=== PATIENT | female | born 1930 | race Caucasian/White ===

== ENCOUNTER 2016-09-08 14:25 | Emergency (ER) | payer BC ==
[2016-09-08 13:49] LABS: BASOPHILS 0.4 %; BASOPHILS ABSOLUTE 0.03 10/3/uL (0.0-0.16); EOSINOPHILS 1.5 %; HEMATOCRIT 33.4 % (36.0-48.0); HEMOGLOBIN 9.6 g/dL (12.0-16.0); IMMATURE GRANULOCYTES 0.1 %; IMMATURE GRANULOCYTES ABSOLUTE 0.01 10/3/uL (0.0-0.11); LYMPHOCYTES 32.8 %; LYMPHOCYTES ABSOLUTE 2.25 10/3/uL (0.67-4.30); MANUAL DIFF NO %; MEAN CORPUS HGB CONC 28.7 g/dL (32.0-36.0); MEAN CORPUSCULAR VOLUME 76.4 fL (80-100); MEAN PLATELET VOLUME 9.3 fL (9.2-13.0); MONOCYTES 8.3 %; MONOCYTES ABSOLUTE 0.57 10/3/uL (0.21-1.20); NEUTROPHILS 56.9 %; NEUTROPHILS ABSOLUTE 3.89 10/3/uL (2.02-8.40); PLATELET COUNT 352 10/3/uL (150-400); RBC DISTRIBUTION WIDTH 22.4 % (12.0-16.0); RED CELL COUNT 4.37 10/6/uL (4.0-5.6); WHITE BLOOD CELLS 6.9 10/3/uL (4.5-10.5)
[2016-09-08 13:58] LABS: PARTIAL THROMBO TIME 28.1 SEC (22.5-37.2)
[2016-09-08 14:04] LABS: BUN (BLOOD UREA NITROGEN) 15 MG/DL (6-23); CALCIUM, SERUM 9.6 MG/DL (8.5-10.4); CHEST PAIN PROFILE TAT 0 Hrs 21 Mins; CHLORIDE, SERUM 101 MMOL/L (96-112); CO2 (CARBON DIOXIDE) 26 MMOL/L (24-34); CREATININE 0.87 MG/DL (0.55-1.02); GFR AFRICAN AMERICAN 70 ML/MIN (>=60); GFR NON AFRICAN AMERICAN 61 ML/MIN (>=60); GLUCOSE, SERUM 99 MG/DL (60-99); INTERNATIONAL NORMAL RATI 1.1 UNITS (-); POTASSIUM, SERUM 4.1 MMOL/L (3.5-5.3); PROTIME (NOT ORD) 13.8 SEC (12.0-14.5); SODIUM, SERUM 139 MMOL/L (135-148); TROPONIN I <0.02 NG/ML (<0.05)
[2016-09-08 14:19] LABS: ALBUMIN 4.3 G/DL (3.5-5.0); ALKALINE PHOSPHATASE 64 U/L (45-117); DIRECT BILIRUBIN < 0.1 MG/DL (0.0-0.4); INDIRECT BILIRUBIN(NOT ORDER) 0.3 MG/DL (0.1-0.9); MICROCYTES 1+ (5-10/OIF) (0-5/OIF); PLATELET ESTIMATE ADQ (ADEQUATE); SGOT(AST) 11 U/L (5-40); SGPT(ALT) 18 U/L (5-65); TOTAL BILIRUBIN 0.4 MG/DL (0-1.2); TOTAL PROTEIN 7.5 G/DL (6.0-8.5)
[~2016-09-08 14:25] MED LIST: ADVIL PO; B12100T PO; CYANO1000T PO; FOSAMAX70 MG PO; GLUCCHONDR PO; MOBIC7.5 PO; NORCO1 TA1 PO; OS250 PO; PROVENT20 INH; PROVHFA INH; T PO; ULTRAM50 PO; VITC500 PO
[2017-03-27] MEDS ORDERED: PROAIR HFA PO (22:27)
[2017-03-27] MEDS ORDERED: AUG875 PO (22:27)
[2017-03-27] MEDS ORDERED: ETODOLAC300 MG PO (22:28)
[2017-03-27] MEDS ORDERED: T3 PO (22:28)
[2017-03-27] MEDS ORDERED: VITC500 PO (22:29)
[2017-03-27] MEDS ORDERED: CYANO1000T PO (22:29)
[2017-03-27] MEDS ORDERED: PROMEGA PO (22:29)
[2017-03-27] MEDS ORDERED: GLUCOSAMINEPO PO (22:30)
[2017-03-27] MEDS ORDERED: VITAMIN D400 UNI1 PO (22:30)
[2017-03-27] MEDS ORDERED: VITAMIN B PO (22:30)
[2017-03-27] MEDS ORDERED: CALCIUM OTC PO (22:31)
== END 2016-09-08 22:45 | disposition home or self-care (01) ==
LOC: ER 14:25
PROVIDERS: Emergency Medicine
DX: R07.89 Other chest pain (principal); Z79.899 Other long term (current) drug therapy
CPT/HCPCS: 71020; 71275; 80048; 80076; 83690; 83735; 84484; 85025; 85610; 85730; 93005; 99285; A9270-GY; Q9967